=== PATIENT | male | born 1940 | race Caucasian/White ===

== ENCOUNTER → 2016-05-21 | Outpatient (CLI) | payer MEDICARE | LOC: LAB 12:15 | PROVIDERS: Internal Medicine Nephrology | DX: N18.3 Chronic kidney disease, stage 3 (moderate) (principal) | CPT/HCPCS: 36415; 80048; 82043; 82570 ==

== ENCOUNTER → 2016-06-25 | Outpatient (CLI) | payer MEDICARE | LOC: LAB 12:36 | PROVIDERS: Internal Medicine Nephrology | DX: N18.3 Chronic kidney disease, stage 3 (moderate) (principal) | CPT/HCPCS: 36415; 80048 ==

== ENCOUNTER → 2016-07-09 | Outpatient (CLI) | payer MEDICARE | LOC: LAB 13:28 | PROVIDERS: Internal Medicine Nephrology | DX: E78.5 Hyperlipidemia, unspecified (principal) | CPT/HCPCS: 36415; 80048 ==

== ENCOUNTER 2020-03-08 23:11 | Emergency (ER) | payer MEDICARE ==
[~2020-03-08 23:11] MED LIST: ALDACTONE50 MG PO; ALLEGRA ALLERG180 MG PO; AMLODIPINE BESYL5 MG PO; AMOXICILLIN875 MG PO; ASPIR 8181 MG PO; BENADRYL 25MG C25 MG PO; BUMETANIDE1 MG PO; CALCIUM 600 +1 EA11 PO; CARDIZEM CD180 MG PO; CATAPRES0.3 MG PO; CEFUROXIME250 MG PO; COREG6.25 MG PO; ENULOSE10 GM/15 M PO; HUMALOG100 UNIT/1 SQ; HYDRALAZINE HC100 MG PO; HYGROTON TAB 2525 MG PO; LIPITOR TAB 2020 MG PO; MEDROL4 MG PO; MINIPRESS5 MG PO; MUCINEX DM ER1 EAC1 PO; NORVASC10 MG PO; OMNICEF 300 MG300 MG PO; ONE DAILY MEN'1 EACH PO; OS-CAL 500+D31 EACH PO; PRINIVIL10 MG PO; PROTONIX40 MG PO; SENOKOT8.6 MG PO; TYLENOL 325MG325 MG PO; VITAMIN B-121000 MCG INJ; VITAMIN D1000 UNI1 PO; ZITHROMAX250 MG PO; ZYRTEC10 MG PO; [UNRECOGNIZED DRUG - OTHER]
[2020-03-09 03:09] LABS: RED BLOOD COUNT 3.68 M/UL (4.20-5.50); WHITE BLOOD COUNT 7.6 K/UL (4.5-11.0)
[2020-03-09 03:31] LABS: BUN/CREATININE RATIO 23 (0-10)
== END 2020-03-09 11:45 | disposition home or self-care (01) ==
LOC: ER1 23:11
PROVIDERS: Emergency Medicine
DX: R00.2 Palpitations (principal); E11.22 Type 2 diabetes mellitus with diabetic chronic kidney disease; N18.9 Chronic kidney disease, unspecified; R79.1 Abnormal coagulation profile; I25.10 Atherosclerotic heart disease of native coronary artery without angina pectoris; U07.1 COVID-19
CPT/HCPCS: 71045; 80053; 82550; 82553; 83874; 84484; 85025; 85379; 93005; 99285; U0002

== ENCOUNTER → 2020-05-07 | Outpatient (CLI) | payer MEDICARE ==
[2020-05-08 10:16] LABS: CREATININE, URINE 64.5 mg/dL (Not Estab.)
== END ==
LOC: LAB 13:47
PROVIDERS: Internal Medicine Nephrology
DX: N18.30 Chronic kidney disease, stage 3 unspecified (principal)
CPT/HCPCS: 36415; 80053; 82043; 82570; 84156

== ENCOUNTER → 2020-08-28 | Outpatient (CLI) | payer MEDICARE ==
[~2020-08-28] MED LIST changes: +AZELASTINE137 MCG/0.; +COREG 12.5MG12.5 MG PO; -COREG6.25 MG PO; +LACTULOSE10 GM/15 M PO; -LIPITOR TAB 2020 MG PO; +LIPITOR80 MG PO; +NASACORT16.9 ML; +PROZAC10 MG PO
[2020-08-28 11:16] LABS: HEMOGLOBIN 11.6 gm/dl (14.0-17.5); RED BLOOD COUNT 3.62 M/UL (4.20-5.50)
[2020-08-29 11:15] LABS: CREATININE, URINE 42.1 mg/dL (Not Estab.)
== END ==
LOC: LAB 09:23
PROVIDERS: Family Medicine; Internal Medicine Nephrology
DX: E78.2 Mixed hyperlipidemia (principal); E11.22 Type 2 diabetes mellitus with diabetic chronic kidney disease; I12.9 Hypertensive chronic kidney disease with stage 1 through stage 4 chronic kidney disease, or unspecified chronic kidney disease; N18.30 Chronic kidney disease, stage 3 unspecified; N25.81 Secondary hyperparathyroidism of renal origin; E11.65 Type 2 diabetes mellitus with hyperglycemia; E53.8 Deficiency of other specified B group vitamins; I25.10 Atherosclerotic heart disease of native coronary artery without angina pectoris
CPT/HCPCS: 36415; 80053; 80061; 82043; 82570; 82607; 83036; 83970; 84100; 84156; 85025

== ENCOUNTER → 2021-02-28 | Outpatient (CLI) | payer MEDICARE | LOC: LAB 14:15 | PROVIDERS: Internal Medicine Nephrology | DX: N18.32 Chronic kidney disease, stage 3b (principal) | CPT/HCPCS: 36415; 80048 ==

== ENCOUNTER → 2021-03-26 | Outpatient (CLI) | payer MEDICARE | LOC: KOH-I 11:51 | DX: J18.9 Pneumonia, unspecified organism (principal); J98.11 Atelectasis | CPT/HCPCS: 71046 ==

== ENCOUNTER → 2021-03-31 | Outpatient (CLI) | payer MEDICARE | LOC: RAD 03-03 08:30 | DX: I69.391 Dysphagia following cerebral infarction (principal); R13.10 Dysphagia, unspecified | CPT/HCPCS: 74230; 92611-GN ==

== ENCOUNTER → 2021-04-25 | Outpatient (CLI) | payer MEDICARE | LOC: KOH-I 15:27 | DX: J18.9 Pneumonia, unspecified organism (principal); J98.11 Atelectasis | CPT/HCPCS: 71046 ==

== ENCOUNTER → 2021-05-13 | Outpatient (CLI) | payer MEDICARE ==
[2021-05-14 12:12] LABS: CREATININE, URINE 73.1 mg/dL (Not Estab.)
== END ==
LOC: LAB 11:41
PROVIDERS: Internal Medicine Nephrology
DX: N18.32 Chronic kidney disease, stage 3b (principal)
CPT/HCPCS: 36415; 80048; 82043; 82570

== ENCOUNTER → 2021-07-23 | Outpatient (CLI) | payer MEDICARE ==
[2021-07-24 12:14] LABS: CREATININE, URINE 69.3 mg/dL (Not Estab.)
== END ==
LOC: LAB 14:44
PROVIDERS: Internal Medicine Nephrology
DX: N18.32 Chronic kidney disease, stage 3b (principal)
CPT/HCPCS: 36415; 80048; 82043; 82570; 84156

== ENCOUNTER → 2021-08-08 | Outpatient (CLI) | payer MEDICARE | LOC: LAB 11:38 | DX: H33.022 Retinal detachment with multiple breaks, left eye (principal); Z20.822 Contact with and (suspected) exposure to COVID-19 | CPT/HCPCS: 36415; U0002 ==

== ENCOUNTER → 2021-08-20 | Outpatient (CLI) | payer MEDICARE | LOC: LAB 15:45 | PROVIDERS: Internal Medicine Nephrology | DX: I50.32 Chronic diastolic (congestive) heart failure (principal) | CPT/HCPCS: 36415; 80048 ==

== ENCOUNTER → 2021-09-10 | Outpatient (CLI) | payer MEDICARE | LOC: LAB 14:11 | PROVIDERS: Internal Medicine Nephrology | DX: N18.32 Chronic kidney disease, stage 3b (principal) | CPT/HCPCS: 36415; 80048 ==

== ENCOUNTER → 2021-09-24 | Outpatient (CLI) | payer MEDICARE ==
[2021-09-26 10:15] LABS: CREATININE, URINE 22.8 mg/dL (Not Estab.)
== END ==
LOC: LAB 15:45
PROVIDERS: Internal Medicine Nephrology
DX: N18.32 Chronic kidney disease, stage 3b (principal); I50.32 Chronic diastolic (congestive) heart failure
CPT/HCPCS: 36415; 80053; 82043; 82570; 84156